=== PATIENT | male | born 1995 | race Caucasian/White ===

== ENCOUNTER 2022-05-05 10:48 | Emergency (ER) | payer SELFPAY ==
--- NOTE | ~2022-05-05 | XR_ITS ---
EXAMINATION: XR chest 2V DATE: 05/05/2022 12:55 INDICATION: Productive cough. TECHNIQUE: Frontal and lateral views of the chest were obtained. COMPARISON: Chest 2 views 05/10/2019 FINDINGS: The chest demonstrates clear lungs without pneumonia, pleural effusion, or pneumothorax. Th e heart size is normal. IMPRESSION: 1. No acute cardiopulmonary disease. Reviewed, dictated and finalized at location A.
[2022-05-05 11:29] VITALS: BP 208/114; PULSE 104; RESP 18; TEMP 36.5; O2SAT 99
--- NOTE | 2022-05-05 11:32 | ECG_ITS ---
Measurements Intervals [place] Rate: 97 P: 38 WA: 140 QRS: 45 QRSD: 100 T: 48 QT: 337 QTc: 429 Interpretive Statements SINUS RHYTHM NORMAL ECG NO PREVIOUS ECG AVAILABLE FOR COMPARISON Electronically Signed On 05-05-2022 12:59:27 CDT by Christophe Schmidt M.D.
[2022-05-05 11:48] LABS: Basophils Percent Auto 0.8 % (0.2-1.2); Eosinophils Percent Auto 0.2 % (0-4.4); Hematocrit 50.7 % (42.0-52.0); Hemoglobin 18.2 g/dL (14.0-18.0); Immature Granulocyte Absolute 0.01 K/mm3 (0.00-0.031); Immature Granulocyte Percent A 0.2 % (0-0.5); Lymphocytes Absolute Auto 1.52 K/mm3 (0.9-3.2); Lymphocytes Percent Auto 31.4 % (18.3-44.2); Mean Corpuscular HGB Conc 35.9 g/dl (32-36); Mean Corpuscular Hemoglobin 34.7 pg (26-34); Mean Corpuscular Volume 96.8 fl (80-100); Mean Platelet Volume 10.2 fl (7.4-10.4); Monocytes Absolute Auto 0.4 K/mm3 (0.1-0.6); Monocytes Percent Auto 8.7 % (2.6-8.5); Neutrophils Absolute Auto 2.8 K/mm3 (1.3-6.7); Neutrophils Percent Auto 58.7 % (45.5-73.1); Platelet Count Result 254 k/mm3 (150-375); Red Blood Count 5.24 M/mm3 (4.6-6.20); Red Cell Distribution Width 11.9 % (11.5-14.5); White Blood Count 4.8 K/mm3 (4.5-10.0)
[2022-05-05 11:59] LABS: Alanine Aminotransferase 245 U/L (6-50); Albumin Level 5.3 g/dL (3.5-5.1); Alkaline Phosphatase 103 U/L (38-126); Anion Gap 21 mmol/L (8-16); Aspartate Amino Transferase 309 U/L (17-59); Bilirubin,Total 0.9 mg/dL (0.2-1.3); Blood Urea Nitrogen 10 mg/dL (9-20); Carbon Dioxide 25 mmol/L (22-30); Chloride 97 mmol/L (98-107); Estimated CRCL calculation 113 ml/min; Estimated Glomerular Filt Rate > 60; Glucose 128 mg/dL (65-110); Lipase 104 U/L (23-300); Potassium 3.9 mmol/L (3.4-5.0); Sodium 143 mmol/L (137-145)
[2022-05-05 12:06] LABS: Prothrombin Time 12.8 Seconds (11.1-14.7)
[2022-05-05 12:07] LABS: Partial Thromboplastin Time 29.4 SECONDS (22.3-36.8)
[2022-05-05 12:11] LABS: Troponin I < 0.012 ng/mL (0.000-0.034)
[2022-05-05 12:24] VITALS: BP 200/125; PULSE 105; RESP 17; O2SAT 97
[2022-05-05 12:26] VITALS: O2SAT 97
--- NOTE | 2022-05-05 12:32 | ED.CHESTPAIN ---
HPI - Chest Pain General Chief Complaint: Upper Respiratory Infection Stated Complaint: cough/congestion Time Seen by Provider: 05/05/22 12:20 History of Present Illness HPI narrative: Pt presents with intermittent heart burn sensation in chest with exertion for last three months. Pt says the sensation lasts a minute or so and resolves. Pt has an intermittent cough. Pt used to take BP meds but hasn't for awhile. Pt has not seen his PCP for a long time. Pt denies SOB or any CP now. Pt has intermittent MUNIZ's as well but none now. Pt admits to regular alcohol consumption which claudia accounts for his elevated transaminases. Pt denies abdominal pain. Related Data Allergies Allergy/AdvReac Type Severity Reaction Status Date / Time No Known Allergies Allergy Verified 05/05/22 12:23 Review of Systems Review of Systems: All systems reviewed & are unremarkable except as noted in HPI and below PMFSH Past Medical History Medical History (Updated 05/05/22 @ 12:46 by Gosia Abrams III, DO) Anxiety Depression Hypertension Left knee injury Surgical History Surgical History (Updated 05/10/19 @ 14:46 by Maik Price) History of repair of ACL S/P ORIF (open reduction internal fixation) fracture lt elbow Family History Family History (Updated 03/15/10 @ 15:18 by DOCTOR UNKNOWN) Other Cerebrovascular accident Family history of cardiovascular disease Family history of osteoarthritis Hypertension Social History Social History Smoking status: Smoker, status unknown Alcohol intake: current Gender identity (if verbalized by the patient): Male Exam Const: General: healthy appearing and no acute distress Nutritional Appearance: well nourished Orientation/consciousness: patient oriented x3 Limitations: no limitations Eyes: Conjunctivae: conjunctivae normal EOM: EOMs intact bilaterally Neck: Neck: normal visual inspection, no lymphadenopathy and no meningeal signs Chest: Chest palpation & inspection: normal inspection of the chest Resp: Effort & Inspection: normal respiratory effort Auscultation: clear to auscultation bilaterally Cardio: Rate: regular rate Rhythm: regular rhythm GI: GI Palp: Yes Soft to palpation Auscultation: normal bowel sounds Skin: General skin exam: normal color Rashes: no rashes Neuro: General: patient oriented x3 Cranial nerves: Yes Nystagmus not present Speech: normal speech Extrem: General: normal to inspection and no clubbing, cyanosis or edema Psych: Mental Status: mental status grossly normal Affect: normal affect Attitude: cooperative Course Course Emergency Course: brief duration of chest burning and normal ekg and trop make angina less likely. Discussed with Dr Bonilla, would like us to start metoprolol 50 mg and he will see in follow up. H-0, E-0, A-0 R-1 T-0 =1 Vital Signs Vital signs: Vital Signs Temperature 97.7 F 05/05/22 11:29 Pulse Rate 104 H 05/05/22 11:29 Respiratory Rate 18 05/05/22 11:29 Blood Pressure 208/114 H 05/05/22 11:29 Pulse Oximetry 99 05/05/22 11:29 Oxygen Delivery Room Air 05/05/22 11:29 Temperature 97.7 F 05/05/22 11:29 Pulse Rate 105 H 05/05/22 13:03 Respiratory Rate 18 05/05/22 13:03 Blood Pressure 176/120 H 05/05/22 13:03 Pulse Oximetry 98 05/05/22 13:03 Oxygen Delivery Room Air 05/05/22 12:26 MDM - Chest Pain Lab Data Attestation: I reviewed the patient's lab results. Result diagrams: 05/05/22 11:40 05/05/22 11:40 Labs: Lab Results 05/05/22 05/05/22 05/05/22 Range/Units 11:40 11:40 11:40 WBC 4.8 (4.5-10.0) K/mm3 RBC 5.24 (4.6-6.20) M/mm3 Hgb 18.2 H (14.0-18.0) g/dL Hct 50.7 (42.0-52.0) % MCV 96.8 (80-100) fl MCH 34.7 H (26-34) pg MCHC 35.9 (32-36) g/dl RDW 11.9 (11.5-14.5) % Plt Count 254 (150-375) k/mm3 MPV 10.2 (7.4-10.4) fl Immature Gran % (Auto) 0.2 (0-0.5) % Neut % (Aut
[2022-05-05 13:03] VITALS: BP 176/120; PULSE 105; RESP 18; O2SAT 98
== END 2022-05-05 13:04 | disposition home or self-care (01) ==
PROVIDERS: Emergency Medicine; Emergency Provider Emergency Medicine; PCP Family Medicine
DX: K21.9 Gastro-esophageal reflux disease without esophagitis (principal); I10 Essential (primary) hypertension
CPT/HCPCS: 36415; 71046; 80053; 83690; 84484; 85025; 85610; 85730; 93005; 99284